=== PATIENT | male | born 1970 | race Caucasian/White ===

== ENCOUNTER 2021-04-19 09:58 | Day surgery (SDC) | payer OTHER ==
--- NOTE | 2021-04-18 20:54 | NUR ---
CALLED PT FOR PROCEDURE INSTRUCTIONS. NUMBER DISCONNECTED.
[~2021-04-19] VITALS: Ht 190.5 cm; Wt 122.0 kg
[2021-04-19] VITALS (10 sets, daily range): BP systolic 96–138; BP diastolic 69–90; PULSE 55–86; TEMP 98
[~2021-04-19 09:58] MED LIST: DAZIDOX10 MG PO; MULTI VITAMINS1 TAB PO
[2021-04-19] MEDS ORDERED: ASPIRIN 81M81 MG/TA2 PO (10:30)
[2021-04-19] MEDS ORDERED: COZAAR 25MG25 MG/TAB PO (10:30)
[2021-04-19] MEDS ORDERED: TYLENOL 500MG500 MG PO (10:31)
[2021-04-19 11:01] LABS: HEMATOCRIT 40.3 % (42.0-52.0); MEAN CELL VOLUME 87 fl (80.0-100.0); MEAN CORPUSCULAR HEMOGLOBIN 30 pg (27.0-31.0); MEAN CORPUSCULAR HGB CONC 35 g/dl (33.0-37.0); MEAN PLATELET VOLUME 9.7 fl (7.4-10.4); PLATELET COUNT 219 K/mm3 (130-400); RED BLOOD COUNT 4.62 M/mm3 (4.20-5.60); REDCELL DISTRIBUTION WIDTH-CV 12.5 % (11.5-14.5)
[2021-04-19 11:11] LABS: PROTHROMBIN TIME 11.1 SECONDS (9.7-12.8)
[2021-04-19 11:14] LABS: PARTIAL THROMBOPLASTIN TIME 32.4 SECONDS (26.0-37.0)
[2021-04-19 11:19] LABS: CALCIUM 9.3 mg/dL (8.4-10.2); CREATININE, serum 0.7 (0.66-1.25); POTASSIUM 4.2 mmol/L (3.4-5.0)
--- NOTE | 2021-04-19 11:20 | NUR ---
NO TELE BOX IN HOUSE. WILL CONTINUE TO MONITOR PT'S VS/MONITOR CLOSELY.
--- NOTE | 2021-04-19 12:20 | NUR ---
SEE MERGE DOCUMENTATION FOR MEDICATION ADMINISTATION TIMES AND INTRA/POST PROCEDURE SEDATION ASSESSMENTS. RIGHT HAND BARBEAU TEST POSITIVE.
--- NOTE | 2021-04-19 13:10 | NUR ---
PT RETURNED FROM [employer]. PT IS AXOX4. PT'S VSS. PT HAS TR BAND TO RIGHT RADIAL WITH 11ML OF AIR. PT INSTRUCTED TO CALL WITH ANY PAIN, SWELLING, NUMBNESS. LUNCH ORDERED. WILL CONTINUE TO MONITOR.
[2021-04-19] MEDS ORDERED: TIAZAC120 MG PO (13:29)
--- NOTE | 2021-04-19 16:05 | NUR ---
DISCHARGE INSTRUCTIONS DISCUSSED WITH PT AND . IV AND TELE DC'D. ALL QUESTIONS ANSWERED. PT WALKED OUT FOR DISCHARGE.
== END 2021-04-19 16:25 | disposition home or self-care (01) ==
LOC: COL.CAR 09:58
PROVIDERS: Internal Medicine Cardiovascular Disease
DX: R94.39 Abnormal result of other cardiovascular function study (principal); R00.2 Palpitations; R06.02 Shortness of breath; I10 Essential (primary) hypertension; J30.9 Allergic rhinitis, unspecified; M19.90 Unspecified osteoarthritis, unspecified site; M51.36 Other intervertebral disc degeneration, lumbar region; Z90.89 Acquired absence of other organs; Z98.52 Vasectomy status; Z87.891 Personal history of nicotine dependence; Z83.3 Family history of diabetes mellitus; Z82.3 Family history of stroke; Z80.9 Family history of malignant neoplasm, unspecified
CPT/HCPCS: C1769; C1887; J1644; J2250; J3010; Q9967